=== PATIENT | female | born 1960 | race Caucasian/White ===

== ENCOUNTER 2016-10-04 13:21 | Emergency (ER) | payer SELFPAY ==
[2016-10-04 13:39] VITALS: BP 160/62
--- NOTE | 2016-10-04 13:47 | UC ---
Skin Complaint HPI - HPI Summary HPI Summary: 8-9 days ago 2 bug bites on back of right knee---It has continued to get worse, larger in size, no drainage now has 2 days of swollen groin lymph tissue right grain---area also has erythema , no fevers, chills or night sweats - History of Current Complaint Chief Complaint: [facility] Time Seen by Provider: 10/04/16 13:32 Stated Complaint: INSECT BITE Hx Obtained From: Patient ?: No Onset/Duration: Sudden Onset, Lasting Days - 8-9, Still Present, Worse Since - past 2-3 Timing: Constant Onset Severity: Mild Current Severity: Moderate Pain Intensity: 4 Pain Scale Used: 0-10 Numeric Location: Discrete - posterior right knee and groin Character: Redness Aggravating: Nothing Alleviating: Nothing Associated Signs & Symptoms: Positive: Negative Related History: Possible Reaction to: Insect - Allergy/Home Medications Allergies/Adverse Reactions: Allergies Allergy/AdvReac Type Severity Reaction Status Date / Time No Known Allergies Allergy Verified 10/04/16 13:29 Home Medications: Home Medications Aspirin TAB* [Aspirin 325 MG TAB*] 325 mg PO BID PRN 10/04/16 [History Confirmed 10/04/16] Hydrocortisone 1% CREAM(NF) 1 applic TOPICAL BID PRN 10/04/16 [History Confirmed 10/04/16] diPHENhydraMINE 2% CREAM(NF) [Benadryl 2% CREAM (NF)] 1 applic TOPICAL BID 10/04 [History Confirmed 10/04/16] Review of Systems Constitutional: Negative Skin: Other - erthema 8x6 inches posterior right knee and 4x5 erythemic area right groin with swollen lymph tissue in groin Eyes: Negative ENT: Negative Respiratory: Negative Cardiovascular: Negative Gastrointestinal: Negative Genitourinary: Negative Motor: Negative Neurovascular: Negative Musculoskeletal: Negative Neurological: Negative Psychological: Negative All Other Systems Reviewed And Are Negative: Yes PMH/Surg Hx/FS Hx/Imm Hx Previously Healthy: Yes - Surgical History Surgical History: Yes Surgery Procedure, Year, and Place: invitro. hysterectomy - Family History Known Family History: Positive: None Family History: no reported cardiovacular issues in family lineage - Social History Occupation: Employed Full-time Lives: With Family Alcohol Use: None Substance Use Type: None Smoking Status (MU): Heavy Every Day Tobacco Smoker Type: Cigarettes Amount Used/How Often: 1/2 PPD Have You Smoked in the Last Year: Yes Cessation Counseling: Counseled 3+Min - 10 Min Physical Exam Triage Information Reviewed: Yes Appearance: Well-Appearing, No Pain Distress, Well-Nourished Vital Signs: Initial Vital Signs Temp 99.1 F 10/04/16 13:32 Pulse 96 10/04/16 13:32 Resp 16 10/04/16 13:32 BP 160/62 10/04/16 13:32 Pulse Ox 98 10/04/16 13:32 Vital Signs Reviewed: Yes Eye Exam: Normal Eyes: Positive: Conjunctiva Clear ENT: Positive: Normal ENT inspection, Hearing grossly normal, Pharynx normal, TMs normal. Negative: Nasal congestion, Nasal drainage, Tonsillar swelling, Tonsillar exudate, Trismus, Muffled/hoarse voice Dental Exam: Normal Neck exam: Normal Neck: Positive: Supple, Nontender, Enlarged Nodes @ - right groin Respiratory Exam: Normal Respiratory: Positive: Chest non-tender, No respiratory distress, No accessory muscle use Cardiovascular Exam: Normal Cardiovascular: Positive: RRR, Brisk Capillary Refill Abdominal Exam: Normal Abdomen Description: Positive: Nontender, No Organomegaly, Soft, Bruit Bowel Sounds: Positive: Present Musculoskeletal Exam: Normal Musculoskeletal: Positive: Strength Intact, ROM Intact, No Edema Neurological Exam: Normal Neurological: Positive: Alert, Muscle Tone Normal Psychological Exam: Normal Psychological: Positive: Age Appropriate Behavior Skin Exam: Normal Skin: Positive: rashes Course/Dx - Course Course Of Treatment: labs for lyme titer, Doxycycle for cellulitis may extend to full 2 weekd if needed for Lyme - Differential Diagnoses - Skin Complaint Differential Diagnoses: Cellulitis, Contact Dermatitis, Local Allergic Reaction , Tick Born Illness - Diagnoses Provider Diagnoses: Cellulitis, lympadenopathy, concider Lyme Discharge - Discharge Plan Condition: Stable Disposition: HOME Prescriptions: DOXYcycline CAP(*) [DOXYcycline 100MG CAP(*)] 100 mg PO BID #30 cap Patient Education Materials: Lyme Disease (ED), Cellulitis (ED) Referrals: [facility] [place] [facility] [Outside] - 2 Weeks
== END 2016-10-04 14:12 | disposition home or self-care (01) ==
LOC: UCCORT 13:21
DX: L03.115 Cellulitis of right lower limb (principal); F17.210 Nicotine dependence, cigarettes, uncomplicated; R59.1 Generalized enlarged lymph nodes
CPT/HCPCS: 86618; 99202; G0463